=== PATIENT | male | born 1950 ===

== ENCOUNTER 2018-10-14 09:00 | Inpatient (IN) | payer OTHER ==
[~2018-10-14] VITALS: Ht 175.3 cm; Wt 82.6 kg
[2018-10-14] MEDS ORDERED: PREVACID30 MG PO (10:49)
[2018-10-14] MEDS ORDERED: TOPROL XL50 M1 PO (10:50)
[2018-10-14] MEDS ORDERED: ATORVASTATIN CA80 MG PO (10:50)
[2018-10-14] MEDS ORDERED: AVAPRO300 MG PO (10:50)
[2018-10-14] MEDS ORDERED: ECOTRIN81 MG PO (10:51)
[2018-10-14] MEDS ORDERED: AMLODIPINE BESYL5 MG PO (10:51)
[2018-10-14] MEDS ORDERED: PLAVIX75 MG PO (10:51)
[2018-10-21] MEDS ORDERED: DOCUSATE SODIU100 MG PO (15:40)
[2018-10-21] MEDS ORDERED: GABAPENTIN800 MG PO (15:40)
[2018-10-21] MEDS ORDERED: AMOX-CLAV 875-1 EACH PO (15:41)
[2018-10-21] MEDS ORDERED: PERCOCET 5-3251 EACH PO (15:42)
[2018-10-21] MEDS ORDERED: CLONAZEPAM1 MG PO (15:42)
== END 2018-10-22 12:29 | disposition home or self-care (01) | DRG 455 ==
LOC: O/R 10-21 06:16 → SURH 10-21 06:16
PROVIDERS: ADMIT Orthopaedic Surgery Orthopaedic Surgery of the Spine
PROC: 0SG1071 Fusion of 2 or more Lumbar Vertebral Joints with Autologous Tissue Substitute, Posterior Approach, Posterior Column, Open Approach (ICD-10-PCS; 2018-10-21)
PROC: 0SG10AJ Fusion of 2 or more Lumbar Vertebral Joints with Interbody Fusion Device, Posterior Approach, Anterior Column, Open Approach (ICD-10-PCS; 2018-10-21)
PROC: 0ST20ZZ Resection of Lumbar Vertebral Disc, Open Approach (ICD-10-PCS; 2018-10-21)
PROC: 07DS3ZZ Extraction of Vertebral Bone Marrow, Percutaneous Approach (ICD-10-PCS; 2018-10-21)
PROC: 0SG10A0 Fusion of 2 or more Lumbar Vertebral Joints with Interbody Fusion Device, Anterior Approach, Anterior Column, Open Approach (ICD-10-PCS; principal; 2018-10-21 13:30)
DX: M47.26 Other spondylosis with radiculopathy, lumbar region (principal); M48.062 Spinal stenosis, lumbar region with neurogenic claudication; M51.16 Intervertebral disc disorders with radiculopathy, lumbar region; I10 Essential (primary) hypertension

== ENCOUNTER 2025-09-20 09:00 | Day surgery (SDC) | payer OTHER ==
[2025-09-14 09:32] LABS: URINE APPEARANCE Clear; URINE BILIRRUBIN Negative (NEGATIVE); URINE BLOOD Negative; URINE COLOR Yellow; URINE GLUCOSE Negative (NEGATIVE); URINE KETONE Negative (NEGATIVE); URINE LEUKOCYTE Negative; URINE NITRATE Negative; URINE PROTEIN Negative (NEGATIVE); URINE UROBILINOGEN 0.2 E.U./dl
[2025-09-14 09:36] LABS: URINE BACTERIA 5.7 uL (0.0-1933); URINE RBC 4.2 uL (0.0-20.8); URINE WBC 3.1 uL (0.0-23.2)
[2025-09-14 09:41] VITALS: BP 163/81
[2025-09-14 10:29] LABS: URINE CAST 0.00 uL (0.0-1.40); URINE EPITHELIAL CELLS 0.3 uL (0.0-38.8)
[2025-09-14 10:50] LABS: BASO % 0.8 % (0.1-1.2); EOS # 0.20 (0.04-0.54); EOS % 3.9 % (0.7-7.0); LYMPH # 1.34 (1.18-3.74); LYMPH % 26.1 % (19.3-53.1); MEAN PLATELET VOLUME 9.50 fl (9.4-12.4); MONO # 0.46 (0.24-0.82); MONO % 8.9 % (4.7-12.5); NEUT # 3.09 (1.56-6.13); NEUT % 60.1 % (34.0-71.1); RED CELL DISTRIBUTION WIDTH 14.5 % (11.6-14.4)
[2025-09-14 11:19] LABS: ALT/SGPT 37.0 U/L (12-78); AST/SGOT 22.0 U/L (15-37); BILIRUBIN TOTAL 0.38 mg/dL (0.3-1.2); BUN CREA RATIO 25.0 (7.0-25.0); CREATININE SERUM 1.06 mg/dL (0.70-1.30); GFR 68.29; GLOBULINA 3.8 G/DL (2.4-3.5); GLUCOSE FASTING 129.0 mg/dL (65-100); OSMOLALITY SERUM 293.0 MOSM/KG (275-295)
[2025-09-14 11:26] LABS: INR 0.97
[~2025-09-20 09:00] MED LIST: AMLODIPINE BESYL5 MG PO; AMOX-CLAV 875-1 EACH PO; ATORVASTATIN CA80 MG PO; AVAPRO300 MG PO; CLONAZEPAM1 MG PO; DOCUSATE SODIU100 MG PO; ECOTRIN81 MG PO; GABAPENTIN800 MG PO; PERCOCET 5-3251 EACH PO; PLAVIX75 MG PO; PREVACID30 MG PO; TOPROL XL50 M1 PO
[2025-09-20] MEDS ORDERED: CEFAZOLIN SODIUM 1,000 MG VIAL ONE (09:59)
[2025-09-20] MEDS ORDERED: BUPIVACAINE HCL/MPF 0.5% 30ML VIAL ONE (12:05)
[2025-09-20] MEDS ORDERED: SUGAMMADEX SODIUM 200 MG/2 ML VIAL IV ONE (14:21)
== END 2025-09-20 17:40 | disposition home or self-care (01) ==
LOC: CIR.AMB 09:00
PROVIDERS: ATTEND Surgery
DX: K40.90 Unilateral inguinal hernia, without obstruction or gangrene, not specified as recurrent (principal)